=== PATIENT | female | born 1980 | race Caucasian/White ===

== ENCOUNTER → 2018-04-06 11:16 | Outpatient (CLI) | payer MEDICARE, MEDICAID, SELFPAY ==
[2018-04-06 12:35] LABS: Alanine Aminotransferase 20 IU/L (9-52); Albumin Globulin Ratio 1.1 (1.0-2.8); Alkaline Phosphatase 56 U/L (38-126); Aspartate Aminotransferase 22 IU/L (14-36); BUN Creatinine Ratio 14.3 (6-22); Bilirubin Total 0.5 mg/dL (0.2-1.3); Blood Urea Nitrogen 10 mg/dL (7-17); Calcium 8.8 mg/dL (8.4-10.2); Carbon Dioxide 30 mmol/L (22-32); Chloride 100 mmol/L (98-107); Estimated Glomerular Filt Rate > 60.0 mL/min (>60); Globulin 3.6 g/dL (1.7-4.1); Glucose 99 mg/dL (70-100); HEMOLYSIS < 15 (0-50); Potassium 3.6 mmol/L (3.4-5.1); Sodium 142 mmol/L (137-145); Total Protein 7.6 g/dL (6.3-8.2)
[2018-04-06 12:45] LABS: Add Manual Diff / Slide Review NO; Basophils Percent Auto 0.7 % (0-2); Eosinophils Percent Auto 3.3 % (2-4); Hematocrit 34.2 % (36-46); Lymphocytes Percent Auto 38.7 % (25-40); Mean Corpuscular HGB Conc 32.2 % (30-36); Mean Corpuscular Hemoglobin 25.9 PG (26-34); Mean Corpuscular Volume 80.6 fL (80-100); Monocytes Percent Auto 8.9 % (3-14); Neutrophils Absolute Auto 2700 /uL (3000-5900); Neutrophils Percent Auto 48.4 % (50-75); Platelet Count 260 X10^3/uL (150-400); Red Blood Cell Count 4.25 X10^6/uL (4.0-5.2); Red Cell Distribution Width 15.6 % (11.6-14.8); White Blood Cell Count 5.6 X10^3/uL (4.5-11.0)
[2018-04-06 18:30] LABS: Hep C Virus Ab w/Reflex Quant NEGATIVE s/c (NEGATIVE); Hepatitis B Surface Antigen NEGATIVE s/c (NEGATIVE)
[2018-04-07 14:34] LABS: Hepatitis A Antibody IgM Nonreactive (Nonreactive)
[2018-04-08 13:58] LABS: Hepatitis B Core IgM Nonreactive (Nonreactive)
[2018-04-08 14:11] LABS: Hepatitis B Surf Ab Qualitativ Nonreactive (Nonreactive)
== END ==
PROVIDERS: Visit Provider Nurse Practitioner Family
DX: Z13.818 Encounter for screening for other digestive system disorders (principal); Z11.59 Encounter for screening for other viral diseases; Z13.228 Encounter for screening for other metabolic disorders
CPT/HCPCS: 36415; 80053; 85025; 86705; 86706; 86709; 86803; 87340